=== PATIENT | female | born 1970 | race Caucasian/White ===

== ENCOUNTER 2017-03-26 14:09 | Emergency (ER) | payer MEDICAID ==
[~2017-03-26 14:09] MED LIST: ALEVE220 M4 PO; ALEVE220 MG; AMBIEN5 M1 PO; AMITRIPTYLINE H10 M1 PO; CALTRATE 600 +1 EAC2 PO; CALTRATE-600/VI1 TAB; CARISOPRODOL350 MG; FLUOXETINE HCL20 MG; GABAPENTIN800 MG; HABITROL; HYDROCODON-ACE1 EA16 PO; HYDROCODONE/A1 UDTA; NEURONTIN400 M1 PO; PROZAC40 MG; SOMA350 M1 PO; SYNTHROID125 MC1 PO; THEREMS-M1 EACH PO
[2017-03-26] MEDS ORDERED: FLUOXETINE HCL20 M2 PO (14:24)
[2017-03-26] MEDS ORDERED: LISINOPRIL-HCT1 EAC2 PO (14:24)
[2017-06-30] MEDS ORDERED: MOBIC7.5 M2 PO (18:12)
[2017-06-30] MEDS ORDERED: PERCOCET 5-3251 EACH PO (18:15)
[2017-06-30] MEDS ORDERED: AMBIEN5 M1 PO (18:17)
== END 2017-03-26 15:45 ==
LOC: EDMED 14:09
DX: S80.02XA Contusion of left knee, initial encounter (principal); I10 Essential (primary) hypertension; F32.9 Major depressive disorder, single episode, unspecified; F17.200 Nicotine dependence, unspecified, uncomplicated; W01.0XXA Fall on same level from slipping, tripping and stumbling without subsequent striking against object, initial encounter; Y92.009 Unspecified place in unspecified non-institutional (private) residence as the place of occurrence of the external cause